=== PATIENT | male | born 1970 | race Caucasian/White ===

== ENCOUNTER → 2021-07-22 13:10 | Outpatient (BNVA) | payer OTHER, SELFPAY | PROVIDERS: PCP Internal Medicine; Visit Provider Physician Assistant | DX: S60.872A Other superficial bite of left wrist, initial encounter (principal); W54.0XXA Bitten by dog, initial encounter; I10 Essential (primary) hypertension | CPT/HCPCS: 73110; 99203 ==

== ENCOUNTER → 2021-07-25 12:55 | Outpatient (BNVA) | payer OTHER, SELFPAY | PROVIDERS: PCP Internal Medicine; Visit Provider Physician Assistant Medical | DX: S60.872A Other superficial bite of left wrist, initial encounter (principal); W54.0XXA Bitten by dog, initial encounter | CPT/HCPCS: 99213 ==

== ENCOUNTER 2021-11-07 12:55 | Emergency (ER) | payer OTHER, SELFPAY ==
--- NOTE | ~2021-11-07 | XR_ITS ---
EXAMINATION: RIGHT HAND AND WRIST. CLINICAL INFORMATION: Right hand injury. COMPARISON: None TECHNIQUE: 4 views FINDINGS: . There is a vertical minimally displaced proximal fifth metatarsal fracture. No additional fractures, dislocation or subluxation seen. There is mild soft tissue swelling lateral to the fifth metatarsal. XR/XR hand wrist RT IMPRESSION: Mildly displaced vertical fracture base of fifth metatarsal with moderate soft tissue swelling. The fracture extends to carpometacarpal joint.
[2021-11-07 13:05] VITALS: BP 193/99; PULSE 79; RESP 18; TEMP 36.7; O2SAT 98; BMI 32.6
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
[2021-11-07] MEDS: Ibuprofen 600 MG TABLET PO (13:26)
== END 2021-11-07 14:22 | disposition home or self-care (01) ==
PROVIDERS: Emergency Provider Emergency Medicine; PCP Internal Medicine
DX: S62.91XA Unspecified fracture of right hand, initial encounter for closed fracture (principal); M79.601 Pain in right arm; X58.XXXA Exposure to other specified factors, initial encounter; Y93.9 Activity, unspecified; Y92.810 Car as the place of occurrence of the external cause; Y99.0 Civilian activity done for income or pay; Z79.899 Other long term (current) drug therapy
CPT/HCPCS: 29125; 73110; 73130; 99284

== ENCOUNTER → 2021-11-08 09:28 | Outpatient (BNVA) | payer OTHER, SELFPAY | PROVIDERS: PCP Internal Medicine; Visit Provider Physician Assistant Medical | DX: S62.396A Other fracture of fifth metacarpal bone, right hand, initial encounter for closed fracture (principal); W22.8XXA Striking against or struck by other objects, initial encounter | CPT/HCPCS: 99203 ==

== ENCOUNTER 2021-11-09 07:51 | Outpatient (REF) | payer OTHER, SELFPAY | END 2021-11-09 07:52 | disposition home or self-care (01) | LOC: HO.HOSX 07:51 | PROVIDERS: Visit Provider Physician Assistant | DX: Z13.89 Encounter for screening for other disorder (principal) ==

== ENCOUNTER 2021-11-15 07:42 | Outpatient (REF) | payer OTHER, SELFPAY ==
--- NOTE | ~2021-11-15 | XR_ITS ---
EXAMINATION: XR HAND, RIGHT CLINICAL INFORMATION: Pain COMPARISON: None available at the time of this dictation. TECHNIQUE: Frontal lateral oblique views of hand were obtained. FINDINGS: There is nondisplaced fracture at the base of the right fifth metacarpal which extend into the carpometacarpal joint. There are no other fractures. Radiocarpal, intercarpal, carpometacarpal, metacarpophalangeal and interphalangeal joints are intact. There are no osteolytic or osteoblastic lesions. There are no bone erosions. Surrounding soft tissue unremarkable. XR/XR hand RT min 3V IMPRESSION: Mildly displaced fracture of the base of the right fifth metacarpal extend into the carpometacarpal joint. No dislocation. There are no other fractures.
== END 2021-11-15 07:43 | disposition home or self-care (01) ==
LOC: HO.HOSX 07:42
PROVIDERS: Visit Provider Physician Assistant
DX: S62.318A Displaced fracture of base of other metacarpal bone, initial encounter for closed fracture (principal)
CPT/HCPCS: 26600; 73130; 99202

== ENCOUNTER 2021-11-22 07:38 | Outpatient (REF) | payer OTHER, SELFPAY ==
--- NOTE | ~2021-11-22 | XR_ITS ---
EXAMINATION: XR HAND, RIGHT CLINICAL INFORMATION: This is a 51-year-old male with pain and displaced fracture of the fifth metacarpal. COMPARISON: Comparison is made to the previous studies dated 11/15/2021 and 11/07/2021 TECHNIQUE: Frontal lateral oblique views of hand were obtained. FINDINGS: There is a nondisplaced fracture at the base of the right fifth metacarpal which extends into the carpometacarpal joint. There are no other fractures. Radiocarpal, intercarpal, carpometacarpal, metacarpophalangeal and interphalangeal joints are intact. There are no osteolytic or osteoblastic lesions. There are no bone erosions. Surrounding soft tissue unremarkable. XR/XR hand RT min 3V IMPRESSION: Mildly displaced fracture of the base of the right fifth metacarpal extending into the carpometacarpal joint. No dislocation. There are no other fractures.
== END 2021-11-22 07:39 | disposition home or self-care (01) ==
LOC: HO.HOSX 07:38
PROVIDERS: Visit Provider Physician Assistant
DX: S62.318A Displaced fracture of base of other metacarpal bone, initial encounter for closed fracture (principal)
CPT/HCPCS: 73130; 99212

== ENCOUNTER 2021-12-20 07:18 | Outpatient (REF) | payer OTHER, SELFPAY ==
--- NOTE | ~2021-12-20 | XR_ITS ---
EXAMINATION: XR HAND, RIGHT CLINICAL INFORMATION: Pain COMPARISON: Previous x-rays most recent November 2021 TECHNIQUE: PA, lateral, and oblique views of the right hand. FINDINGS: There is a healing fracture of the base of the fifth metacarpal bone. Alignment appears unchanged. No other fracture is seen. Joint spaces are normal. Soft tissues are normal. XR/XR hand RT min 3V IMPRESSION: Healing fracture of the base of the fifth metacarpal bone.
== END 2021-12-20 07:19 | disposition home or self-care (01) ==
LOC: HO.HOSX 07:18
PROVIDERS: Visit Provider Physician Assistant
DX: S62.318D Displaced fracture of base of other metacarpal bone, subsequent encounter for fracture with routine healing (principal)
CPT/HCPCS: 73130; 99212

== ENCOUNTER 2022-01-20 07:09 | Outpatient (REF) | payer OTHER, SELFPAY | END 2022-01-20 07:10 | disposition home or self-care (01) | LOC: HO.HOSX 07:09 | PROVIDERS: Visit Provider Physician Assistant | DX: Z13.89 Encounter for screening for other disorder (principal) ==

== ENCOUNTER 2022-01-24 07:51 | Outpatient (REF) | payer OTHER, SELFPAY ==
--- NOTE | ~2022-01-24 | XR_ITS ---
EXAMINATION: XR HAND, RIGHT CLINICAL INFORMATION: Pain. COMPARISON: Radiographs dated 12/20/2021. TECHNIQUE: PA, lateral, and oblique views of the right hand. FINDINGS: Bony alignment and mineralization are normal. There is stable alignment of a fracture at the base of the right fifth metacarpal bone. No dislocation is seen. The soft tissue planes are unremarkable, without gas or foreign body. XR/XR hand RT min 3V IMPRESSION: There is stable alignment of a healing fracture at the base of the right fifth metacarpal bone.
== END 2022-01-24 07:52 | disposition home or self-care (01) ==
LOC: HO.HOSX 07:51
PROVIDERS: Visit Provider Physician Assistant
DX: S62.316A Displaced fracture of base of fifth metacarpal bone, right hand, initial encounter for closed fracture (principal)
CPT/HCPCS: 73130; 99212

== ENCOUNTER 2025-05-18 10:16 | Emergency (ER) | payer OTHER, SELFPAY ==
--- NOTE | ~2025-05-18 | XR_ITS ---
CLINICAL HISTORY: fracture? 3 view right foot Comparison: CR - XR ANKLE RT MIN 3V - 05/18/25 11:07 EDT Findings: Bones intact. No dislocations. No significant loss of joint space, osteophytes, or erosions. No ankle effusion. No radiopaque foreign body. IMPRESSION: 1. No acute findings. This document has been electronically signed by: Med Rae DO on 05/18/2025 13:32:32
--- NOTE | ~2025-05-18 | XR_ITS ---
CLINICAL HISTORY: posterior ankle injury, erythema, osteo? fracture? 3 view right ankle Comparison: CR - XR FOOT RT 2V - 05/18/25 11:05 EDT Findings: No acute fractures. Ankle mortise intact. No significant loss of joint space, osteophytes, or erosions. No ankle effusion. No radiopaque foreign body. IMPRESSION: 1. No acute findings. This document has been electronically signed by: Med Rae DO on 05/18/2025 13:33:16
[2025-05-18 10:24] VITALS: BP 195/91; PULSE 98; RESP 18; TEMP 37.2; O2SAT 98; BMI 32.7
--- NOTE | 2025-05-18 10:26 | ED_ITS ---
HPI - General Adult General Chief complaint: Wound/Laceration Stated complaint: r ankle inj at work Time Seen by Provider: 05/18/25 10:29 Source: patient Mode of arrival: ambulatory Limitations: no limitations History of Present Illness ED Provider: Juanpablo Lynne HPI narrative: 54 yold male with pmh of HTN presents to the ED for right ankle injury that now seems infected. 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 Patient states this occured a week ago. Patietn states no having blisters, redness, and drainage. Patient states uptodate with tdap Related Data Previous Rx's ?Medication ?Instructions ?Recorded cyclobenzaprine 10 mg tablet 10 mg PO TID PRN muscle s pasm #14 11/07/21 tabs hydrocodone 5 mg-acetaminophen 325 1 tab PO Q6H PRN pa in #12 tabs 11/07/21 mg tablet ibuprofen 600 mg tablet 600 mg PO Q6H PRN pain #30 t abs 11/07/21 ondansetron 4 mg disintegrating 4 mg PO Q8H PRN nausea and 11/07/21 tablet vomiting #20 tabs cephalexin 500 mg capsule 500 mg PO QID 7 days #28 cap s 05/18/25 naproxen 500 mg tablet 500 mg PO BID PRN pain #14 t abs 05/18/25 sulfamethoxazole 800 1 tab PO BID 10 days #20 tab s 05/19/25 mg-trimethoprim 160 mg tablet (Bactrim DS) Allergies Allergy/AdvReac Type Severity Reaction Status Date / Time No Known Allergies Allergy Verified 05/18/25 10:27 Review of Systems 2 Review of Systems: right posterior ankle infection Yes all other systems are reviewed and are negative PMFSH Past Medical History Medical History Patient denies medical problems Social History Social History Current occupational status: employed Current occupation: [employer], rt hand Physical Exam ED Vital Signs: Vital Signs - 24 hr 05/18/25 10:24 05/18/25 11:53 05/18/25 11:56 Temperature 98.9 F 98.4 F Pulse Rate 98 67 Respiratory Rate 18 12 Blood Pressure 195/91 H 177/97 H 177/99 H Pulse Oximetry 98 100 Oxygen Delivery Method Room Air Room Air 05/18/25 12:09 Temperature Pulse Rate 62 Respiratory Rate 18 Blood Pressure 177/99 H Pulse Oximetry 99 Oxygen Delivery Method Room Air BMI result Body Mass Index 32.7 Const General: cooperative, healthy appearing, comfortable, no acute distress, well developed, alert, awake and Physically active Orientation/consciousness: patient oriented x3 HENMT Head: Yes normal to inspection, Yes No palpable skull fracture present, Yes normocephalic and Yes atraumatic Eyes General: appearance normal, both eyes and all related structures Neck Neck: Yes normal visual inspection, Yes full ROM, Yes no lymphadenopathy, Yes no meningeal signs, Yes trachea midline, Yes supple, No anterior neck swelling and No tender Chest Chest palpation & inspection: normal inspection of the chest and normal palpation of entire chest wall Resp Effort & Inspection: normal respiratory effort and able to speak in complete sentences Auscultation: clear to auscultation bilaterally Cardio Jugular venous distension: no JVD Heart sounds: S1 normal heart sound present and S2 normal heart sound present GI Inspection: Yes normal to inspection Palpation (GI): Soft to palpation, not firm, nontender, no guarding and not rigid General: Yes no CVA tenderness Back/Spine/Pelvis Back: no CVA tenderness and No back tenderness Skin Other: right ankle cellulitis General skin exam: no rashes or lesions noted and elasticity normal Neuro General: patient oriented x3, gait normal, tone normal, moves all extremities, Normal light touch and pain sensation, no meningeal signs, no focal motor deficits, CN's II-XI intact bilaterally and normal sensation to monofilament Extrem General: Yes normal to inspection, Yes full ROM and Yes capillary refill normal Ankle/foot/toe images: 2 1. positive for erythema, blisters, and weeping foul odor discharge. rest of extremity normal. Motor, neuro, and vascular exam is intact. Psych Appearance: grossly normal, well kempt and not disheveled Course Course Course Narrative: RME: 54-year-old male presents to ED for evaluation of right ankle injury now with redness weeping and pus discharge. Negative for deformity. Labs x-ray ordered. Medical Decision Making Medical Decision Making MDM Narrative: 54-year-old male presents to ED for evaluated of right ankle wound after trauma that occurred couple of days ago. Patient has cut right posterior ankle on Old cement and debris. Patient denies any trouble walking. Patient admits to erythema weeping and some discharge. X-ray negative for signs of osteomyelitis or fracture. ESR CRP normal. Not suspecting osteomyelitis, necrotizing fasciitis, shingles, lymphangitis, DVT, arterial occlusion, compartment syndrome or any other life threatening etiology. Patient has history of high blood pressure informed to be compliant with high blood pressure medication and keep a record of his blood pressure. Patient denies any chest pain, shortness of breath headache or dizziness. Not suspecting hypertensive emergency or urgency. No need EKG or head ct scan. Patient has no cardiac or neuro symptoms. Differential Diagnosis Differential Diagnoses: The differential diagnosis associated with the presentation includes (Fracture abscess cellulitis) Admission/Observation Consideration of admission/observation: Escalation of care including admission/observation considered Lab Data MDM Lab Attestation statement: I reviewed the patient's lab results. 05/18/25 10:50 05/18/25 10:50 Labs: Lab Results 05/18/25 Range/Units 10:50 WBC 3.6 L (4.8-10.8) X10*3/uL RBC 4.24 L (4.60-5.80) X10*6/uL Hgb 13.7 L (14.0-18.0) g/dl Hct 39.0 L (42.0-52.0) % MCV 92.0 (80.0-98.0) fL MCH 32.3 (27.0-33.0) pg MCHC 35.1 (31.0-36.0) g/dl RDW 14.1 (11.0-16.0) % Plt Count 165 (160-400) X10*3/uL MPV 10.0 (9.4-12.4) fL Immature Gran % (Auto) 0.8 H (0.0-0.4) % Neut % (Auto) 55.0 (45-73) % Lymph % (Auto) 28.3 (20-40) % Boundary % (Auto) 12.4 H (2-11) % Eos % (Auto) 3.0 (0-4) % Baso % (Auto) 0.5 (0-2) % Lymph # (Auto) 1.0 L (1.2-4.9) X10*3/uL Boundary # (Auto) 0.5 (0.1-1.2) X10*3/uL Eos # (Auto) 0.1 (0.0-0.4) X10*3/uL Baso # (Auto) 0.0 (0.0-0.2) X10*3/uL Abs Immat Gran (auto) 0.03 (0.00-0.03) X10*3/uL Absolute Neuts (auto) 2.0 (2.0-8.3) x10*3/uL Absolute Nucleated RBC 0.000 (0.0-0.012) X10*3/uL Nucleated RBC % (auto) 0.0 (0.0-0.2) /100WBC ESR 6 (0-15) MM/HR Sodium 143 (135-145) mmol/L Potassium 3.9 (3.3-5.1) mmol/L Chloride 107 (96-108) mmol/L Carbon Dioxide 25 (22-29) mmol/L Anion Gap 15 (12-20) BUN 14 (9-16) mg/dL Creatinine 0.81 (0.5-1.4) mg/dL Estim Creat Clear Calc 130.0 Estimated GFR > 60 Random Glucose 91 (60-115) mg/dL Calcium 8.8 (8.4-10.2) mg/dL Total Bilirubin 0.7 (0.0-1.0) mg/dL AST 24 (5-37) U/L ALT 18 (0-40) U/L Alkaline Phosphatase 55 (39-117) U/L C-Reactive Protein 0.73 H (< or = 0.50) mg/dL Total Protein 7.1 (6.5-8.0) g/dL Albumin 4.6 (3.5-5.0) g/dL Hold Red Top See Note Independent Interpretation I performed an independent interpretation of an: Plain X-Ray Radiology Impression Discussion of test interpretation with radiology: I have reviewed the radiologist's reading. Independent Historian Clinical information obtained from an independent historian. History obtained from or confirmed by: Other (patient) Prescription Management I considered prescription management with: Pain Medication and Antibiotic Discharge Plan Discharge Clinical Impression: Cellulitis, Wound infection Patient Disposition: Home, Self-Care Instructions: Wound Infection (ED), Cellulitis (ED), Hypertension (ED), Warm Compress or Soak (ED) Additional Instructions: Recommend follow-up with your primary care provider. You will need for you're wound infection. Return to the ED immediately for worsening redness, red streaks, pus discharge, foul odor, calf pain, bluish black discoloration, chest pain, shortness of breath, slurred speech, facial droop, headache, paralysis of extremities, any other concerning symptoms. Blood pressures were elevated during ED visit. Pain can cause elevation due to history of high blood pressure we Recommend being compliant with high blood pressure medications and keep a record of your blood pressure to show your primary care provider. Prescriptions: New cephalexin 500 mg capsule 500 mg PO QID 7 Days Qty: 28 0RF naproxen 500 mg tablet 500 mg PO BID PRN (Reason: pain) Qty: 14 0RF No Action cyclobenzaprine 10 mg tablet 10 mg PO TID PRN (Reason: muscle spasm) Qty: 14 0RF hydrocodone-acetaminophen 5-325 mg tablet 1 tab PO Q6H PRN (Reason: pain) Qty: 12 0RF ibuprofen 600 mg tablet 600 mg PO Q6H PRN (Reason: pain) Qty: 30 0RF ondansetron 4 mg tablet,disintegrating 4 mg PO Q8H PRN (Reason: nausea and vomiting) Qty: 20 0RF sulfamethoxazole-trimethoprim [Bactrim DS] 800-160 mg tablet 1 tab PO BID 10 Days Qty: 20 0RF Referrals: [facility] [Outside] - 2 days Referral Note: Laceration at work now infected Clinical Impression: Wound infection; Cellulitis Rocio Brambila MD [Primary Care Provider, Internal Medicine] - 2 days Referral Note: Wound infection status post trauma Stand Alone Forms: Work/School Release Interventions: ED Discharge Assessment Last Done: 05/18/25 14:45 Discharge Date/Time: 05/18/25 15:00 Print Language: American
--- OUTSIDE RECORDS SUMMARY | 2025-05-18 10:50 | XMS_ITS | Continuity of Care Document ---
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 It does not include entries that were removed or entered in error. Problem Status Onset Date Problem Type Date of Resolution Comments Source Peck's esophagus Active Condition Oct 21, 2021 Entered By: REJI HUMPHREY Comment: following with [facility] GI [facility] [place] [facility] GERD - Gastro-Esophag eal Reflux Disease ([facility] [id number]) Active Condition [facility] [place] [facility] Low Back Pain ([facility] [id number]) Active Condition [facility] [place] [facility] Raynaud's phenomenon Active Condition Oct 21, 2021 Entered By: REJI HUMPHREY Comment: bialteral hands, feet relatively unaffected [facility] [place] [place] [facility] Right knee pain Active Condition [facility] [place] [facility] Medications Combined list of outpatient medications from Department of Defense and Veterans Affairs facilities.Medications provided include 1) outpatient medications from the last 15 months, and 2) patient-reported medications. Medication Details Route Status Patient Instructions Prescription Expires Prescription Number Last Dispense Date Ordering Provider Order Date Order Qty Source OMEPRAZOLE 20MG CAP,EC TAKE 1 CAPSULE BY MOUTH EVERY MORNING 30 MINUTES BEFORE BREAKFAS T ORAL ACTIVE RA ANGELINA [facility]HREY [facility] Encounters Combined list of: 1) Encounters from Department of Veterans Affairs facilities going backup to the last 18 months, not all [place] inpatient encounters are included; 2) Encounters from the Department of Defense facilities going backup to 280 months. Location Location Details Encounter Type Encounter Number Reason For Visit Attending Provider ADM Date DC Date Status Disposition Source [facility] [place] [facility] Outpatient Encounter [id number] 07/14 [facility] [facility] [place] [facility] [place] [facility] Outpatient Encounter [id number] [facility] [place] [facility] Social History Combined list of available smoking, tobacco, and other social history from Department of Defense and Veterans Affairs facilities. Social History Type Response Date Comment Sour e Tobacco smoking status NHIS LIFETIME NON-SMOKER 08/15/2022 [facility] [place] [facility] History of tobacco use [place] NEVER USED [facility] This section is an empty social history section. DoD
[2025-05-18 10:54] LABS: MANUAL DIFF FLAG NO
[2025-05-18 10:59] LABS: Hematocrit 39.0 % (42.0-52.0); Hemoglobin 13.7 g/dl (14.0-18.0); Imm Gran Abs Auto 0.03 X10*3/uL (0.00-0.03); Imm Gran Pct Auto 0.8 % (0.0-0.4); Lymphocytes Absolute Auto 1.0 X10*3/uL (1.2-4.9); Mean Corpuscular HGB Conc 35.1 g/dl (31.0-36.0); Mean Corpuscular Hemoglobin 32.3 pg (27.0-33.0); Mean Corpuscular Volume 92.0 fL (80.0-98.0); NRBC Abs Auto 0.000 X10*3/uL (0.0-0.012); NRBC Pct Auto 0.0 /100WBC (0.0-0.2); Platelet Count 165 X10*3/uL (160-400); Red Blood Count 4.24 X10*6/uL (4.60-5.80); White Blood Count 3.6 X10*3/uL (4.8-10.8)
[2025-05-18 11:11] LABS: Alanine Aminotransferase 18 U/L (0-40); Albumin Level 4.6 g/dL (3.5-5.0); Alkaline Phosphatase 55 U/L (39-117); Anion Gap 15 (12-20); Aspartate Amino Transferase 24 U/L (5-37); Blood Urea Nitrogen 14 mg/dL (9-16); Calcium 8.8 mg/dL (8.4-10.2); Carbon Dioxide 25 mmol/L (22-29); Chloride 107 mmol/L (96-108); Creatinine Clr Calc Pharmacy 130.0; Estimated Glomerular Filt Rate > 60; Potassium 3.9 mmol/L (3.3-5.1); Sodium 143 mmol/L (135-145); Total Protein 7.1 g/dL (6.5-8.0)
[2025-05-18 11:53] VITALS: BP 177/97; PULSE 67; RESP 12; TEMP 36.9; O2SAT 100
[2025-05-18 11:56] VITALS: BP 177/99
[2025-05-18 12:09] VITALS: BP 177/99; PULSE 62; RESP 18; O2SAT 99
[2025-05-18 14:14] VITALS: BP 192/95; PULSE 71; RESP 18; TEMP 36.6; O2SAT 100
[2025-05-18 14:45] VITALS: BP 185/98; PULSE 82; RESP 12; TEMP 36.6; O2SAT 98
--- NOTE | 2025-05-18 15:29 | PC.NURSE ---
Pt with open wound on lower right leg, reports it was a scrape initially. Open wound with clear exudate, multiple bullae, mild redness around, minimal pain. Blood pressure elevated, provider aware. Pt's wound dressed with bacitracin, non-stick dressing, kerlex and tape. Discharge report given to him. 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 Ambulated independently off the floor.
== END 2025-05-18 15:00 | disposition home or self-care (01) ==
PROVIDERS: Physician Assistant; Emergency Provider Emergency Medicine; PCP Internal Medicine
DX: L03.115 Cellulitis of right lower limb (principal); S91.011A Laceration without foreign body, right ankle, initial encounter; W22.09XA Striking against other stationary object, initial encounter; Y93.89 Activity, other specified; Y92.815 Train as the place of occurrence of the external cause; Y99.0 Civilian activity done for income or pay
CPT/HCPCS: 36415; 73610; 73620; 80053; 85025; 85652; 86140; 99283; 99284

== ENCOUNTER → 2025-05-18 10:25 | Outpatient (BNV) | payer OTHER, SELFPAY | PROVIDERS: Emergency Provider Emergency Medicine; PCP Internal Medicine; Visit Provider Family Medicine | DX: S99.911A Unspecified injury of right ankle, initial encounter (principal); M79.671 Pain in right foot | CPT/HCPCS: 73610; 73620 ==

== ENCOUNTER → 2025-05-19 09:28 | Outpatient (BNVA) | payer OTHER, SELFPAY | PROVIDERS: PCP Internal Medicine; Visit Provider Physician Assistant Medical | DX: L03.115 Cellulitis of right lower limb (principal); L03.116 Cellulitis of left lower limb; Z23 Encounter for immunization | CPT/HCPCS: 87070; 87205; 90715; 99202 ==

== ENCOUNTER → 2025-05-21 10:55 | Outpatient (BNVA) | payer OTHER, SELFPAY | PROVIDERS: PCP Internal Medicine; Visit Provider Physician Assistant Medical | DX: L03.115 Cellulitis of right lower limb (principal); L03.116 Cellulitis of left lower limb; L25.9 Unspecified contact dermatitis, unspecified cause | CPT/HCPCS: 99213 ==

== ENCOUNTER → 2025-06-01 10:39 | Outpatient (BNVA) | payer OTHER, SELFPAY | PROVIDERS: PCP Internal Medicine; Visit Provider Physician Assistant Medical | DX: L25.3 Unspecified contact dermatitis due to other chemical products (principal); L03.115 Cellulitis of right lower limb; Z02.79 Encounter for issue of other medical certificate | CPT/HCPCS: 99213 ==